=== PATIENT | female | born 1950 | race Caucasian/White ===

== ENCOUNTER → 2018-10-26 | Outpatient (CLI) | payer MEDICARE | END | disposition home or self-care (01) | LOC: PCVCCLINIC 13:30 | PROVIDERS: ATTEND Internal Medicine | DX: I25.10 Atherosclerotic heart disease of native coronary artery without angina pectoris (principal); I10 Essential (primary) hypertension; M81.0 Age-related osteoporosis without current pathological fracture; E78.5 Hyperlipidemia, unspecified; R07.9 Chest pain, unspecified; R93.1 Abnormal findings on diagnostic imaging of heart and coronary circulation; E03.9 Hypothyroidism, unspecified; M19.90 Unspecified osteoarthritis, unspecified site; Z72.89 Other problems related to lifestyle; Z79.899 Other long term (current) drug therapy | CPT/HCPCS: 93005; G0463 ==

== ENCOUNTER → 2018-11-09 | Outpatient (CLI) | payer MEDICARE ==
[~2018-11-09] MED LIST: REGADENOSON 0.4 MG/5 ML DISP.SYRIN. IV ONE
--- NOTE | 2018-11-09 13:53 | PCVCIMAG ---
APPROVED REPORT Imaging Protocol: Rest Tc-99m/Stress Tc-99m 1 day Study performed: 11/09/2018 10:13:33 Indication: Chest pain Patient Location: Out-Patient Stress Nurse: Eda Cash RN, Monica Knight RN [place] Tech:Elisha Chris [facility] Ht: 5 ft 5 in Wt: 118 lbs BSA: 1.58 m2 HR: 85 bpm BP: 174/87 mmHg BMI: 19.63 Rhythm: Sinus Rhythm, nonspecific ST-T abnormalities Medical History Medical History: Hyperlipidemia, HTN Medications: Losartan, Zocor, Trazodone, Mobic Allergies: No known drug allergies Cardiac Risk Factors: Age Pretest Chest Pain Characteristics: No chest pain Exercise History: Indeterminate Resting Data Rest SPECT myocardial perfusion imaging was performed in supine position 45 minutes following the intravenous injection of 10.2 mCi of Tc-99m Sestamibi. Time of rest injection: 1000 Date: 11/09/2018 Administration Route: IV Administration Site: Right AC Pharmacologic Stress Pharmacologic stress test was performed by injecting Regadenoson 0.4 mg IV push over 10-15 seconds immediately followed by the intravenous injection of 32.3 mCi of Tc-99m Sestamibi. Time of stress injection: 1115 Date: 11/09/2018 Administration Route: IV Administration Site: Right AC Gated Stress SPECT was performed 45 minutes after stress injection. The images were gated to evaluate regional wall motion and calculate left ventricular ejection fraction. Stress Test Details Stress Test: Pharmacologic stress was paired with low level exercise. Reason for pharmacologic stress test: physical limitation, spinal osteoporosis. HRMax Heart Rate (APMHR): 153 bpm Resting HR: 85 bpmTarget HR (85% APMHR): 130 bpm Max HR Achieved: 134 bpm % of APMHR: 87 Recovery HR: 95 bpm BP Resting BP: 174/87 mmHg Max BP: 152/87 mmHg Recovery BP: 174/83 mmHg ECG Resting ECG: Sinus Rhythm, nonspecific ST-T abnormalities Stress ECG: Sinus Rhythm, nonspecific ST-T abnormalities Arrhythmia: PVC's Recovery ECG: Sinus Rhythm, nonspecific ST-T abnormalities Clinical Reason for Termination: Completed protocol Stress Symptoms: Abdominal discomfort, Nausea, Headache Exercise duration: 4 min 00 sec Exercise capacity: 1.6 METs Symptoms resolved with caffeine. Stress ECG Conclusion 1. Corresponds intravenous Lexiscan 2. Inadequate heart rate response for ECG diagnosis Study Data Post stress, the left ventricular ejection was 82%.. SSS: 0 SRS: 0 SDS: 0 TID = 1.05. Perfusion There is a medium area of mildly reduced uptake in the entire segment of the inferior wall which is seen on the stress images and improves on the resting images. This area thickens and moves normally and is most consistent with attenuation artifact although ischemia cannot be completely excluded. Wall Motion Normal left ventricular wall motion. Nuclear Conclusion ECG Findings: non-diagnostic Clinical Findings: negative for ischemia Nuclear Findings: equivocal Exercise Capacity: not assessed Left Ventricular Function: normal 1. Intermediate risk study base on the partial reversibility of the inferior wall. There was no wall motion abnormalities associated with this and artifact may be the cause. Clinical correlation suggested 2. Post exercise left ventricular ejection fraction 82% with normal contractility <Conclusion> 1. Corresponds intravenous Lexiscan 2. Inadequate heart rate response for ECG diagnosis
--- NOTE | 2018-11-09 13:56 | PCVCIMAG ---
APPROVED REPORT Study performed: 11/09/2018 09:07:42 EXAM: Comprehensive 2D, Doppler, and color-flow Echocardiogram Patient Location: Echo lab Room #: 3Status: routine BSA: 1.58 HR: 67 bpmBP: 132/88 mmHg Rhythm: NSR Other Information Study Quality: Adequate Risk Factors: Cardiac Risk Factors: HTN, Hyperlipidemia Indications CAD Chest Pain Coronary calcium seen on x-ray 2D Dimensions IVSd: 9.21 (7-11mm)LVOT Diam: 16.68 (18-24mm) LVDd: 37.58 mm PWd: 6.10 (7-11mm)Ascending Ao: 28.22 (22-36mm) LVDs: 21.33 (25-40mm) Left Atrium: 20.66 (27-40mm) Aortic Root: 23.70 mm LV Single Plane 4CH: 65.05 % LV Single Plane 2CH: 55.77 % Biplane EF: 60.4 % Volumes Left Atrial Volume (Systole) Single Plane 4CH: 29.69 mLSingle Plane 2CH: 24.69 mL Biplane LA Volume: 30.00 mLLA ESV Index: 19.00 mL/m2 Aortic Valve AoV Peak Andres.: 1.41 m/s AO Peak Gr.: 7.99 mmHgLVOT Max P.17 mmHg LVOT Max V: 1.02 m/s SANTHOSH Vmax: 1.58 cm2 Mitral Valve E/A Ratio: 1.1 MV Decel. Time: 214.79 ms MV E Max Andres.: 0.84 m/s MV A Andres.: 0.78 m/s IVRT: 100.35 ms TDI E/Lateral E': 9.33E/Medial E': 12.00 Medial E' Andres.: 0.07 m/s Lateral E' Andres.: 0.09 m/s Pulmonary Valve PV Peak Andres.: 1.02 m/sPV Peak Gr.: 4.18 mmHg Pulmonary Vein P Vein S: 0.72 m/sP Vein A: 0.54 m/s P Vein D: 0.54 m/sP Vein A Dur.: 93.4 msec P Vein S/D Ratio: 1.33 Tricuspid Valve TV Vmax: 0.62 m/s Left Ventricle The left ventricle is normal size. There is normal LV segmental wall motion. There is normal left ventricular wall thickness. Left ventricular systolic function is normal. The left ventricular ejection fraction is within the normal range. LVEF is 55-60%. Right Ventricle The right ventricle is normal size. The right ventricular systolic function is normal. Atria The left atrium size is normal. The right atrium size is normal. Aortic Valve Aortic valve is trileaflet. The aortic valve is normal in structure and function. No aortic regurgitation is present. There is no aortic valvular stenosis. Mitral Valve The mitral valve is normal in structure. There is no mitral valve regurgitation noted. No evidence of mitral valve stenosis. Tricuspid Valve The tricuspid valve is normal in structure. There is no tricuspid valve regurgitation noted. Pulmonic Valve The pulmonary valve is normal in structure. There is no pulmonic valvular regurgitation. Great Vessels The aortic root is normal in size. The ascending aorta is normal in size. Aortic arch is normal in caliber where seen. IVC is normal in size and collapses >50% with inspiration. Pericardium There is no pericardial effusion. There is no pleural effusion. <Conclusion> The left ventricle is normal size. LVEF is 55-60%. Aortic valve is trileaflet. The aortic valve is normal in structure and function. The mitral valve is normal in structure. The tricuspid valve is normal in structure. The pulmonary valve is normal in structure. There is no pericardial effusion.
== END | disposition home or self-care (01) ==
LOC: PCVCIMAG 08:51
PROVIDERS: ATTEND Internal Medicine
DX: I25.10 Atherosclerotic heart disease of native coronary artery without angina pectoris (principal); R94.31 Abnormal electrocardiogram [ECG] [EKG]
CPT/HCPCS: 78452; 93017; 93306; A9500; J2785

== ENCOUNTER → 2019-01-01 | Outpatient (CLI) | payer MEDICARE | END | disposition home or self-care (01) | LOC: PCVCCLINIC 16:16 | PROVIDERS: ATTEND Internal Medicine | DX: I25.10 Atherosclerotic heart disease of native coronary artery without angina pectoris (principal); I10 Essential (primary) hypertension; E78.5 Hyperlipidemia, unspecified; E03.9 Hypothyroidism, unspecified; M19.90 Unspecified osteoarthritis, unspecified site; M81.0 Age-related osteoporosis without current pathological fracture; Z79.899 Other long term (current) drug therapy | CPT/HCPCS: 36415; 80061; G0463 ==